=== PATIENT | female | born 1955 | race Caucasian/White ===

== ENCOUNTER → 2016-11-17 | Outpatient (CLI) | payer MEDICAID ==
--- NOTE | 2016-11-21 07:10 | MM ---
Reason for exam: screening (asymptomatic). Last mammogram was performed 1 year and 5 months ago. History: Patient is postmenopausal. Benign left US cyst aspiration of the left breast, August 04, 2009. Benign excisional biopsy of the right breast, January 16, 2000. Stereotactic core biopsy of the right breast, December 21, 1999. Took estrogen for 4 years 7 months. Took progesterone for 4 years 7 months. Physical Findings: A clinical breast exam by your physician is recommended on an annual basis and results should be correlated with mammographic findings. MG 3D Screening Mammo W/Cad Bilateral CC and MLO view(s) were taken. Prior study comparison: June 29, 2015, bilateral MG screening mammo w CAD. June 16, 2014, bilateral MG screening mammo w CAD. March 31, 2013, bilateral digital screening mammo w/CAD. There are scattered fibroglandular densities. No significant changes when compared with prior studies. ASSESSMENT: Negative, BI-RAD 1 RECOMMENDATION: Routine screening mammogram of both breasts in 1 year.
== END | disposition home or self-care (01) ==
LOC: RADMAMWWP 09:46
PROVIDERS: ATTEND Internal Medicine Geriatric Medicine
DX: Z12.31 Encounter for screening mammogram for malignant neoplasm of breast (principal)
CPT/HCPCS: 77063; G0202

== ENCOUNTER 2016-12-06 08:33 | Day surgery (SDC) | payer MEDICAID ==
[2016-12-05 10:00] VITALS: BMI 32.8
[~2016-12-06 08:33] MED LIST: LIDOCAINE 1% 20 ML VIAL (10MG/ML) FOR IV START INTRADERMA PRN
[2016-12-06 09:17] VITALS: RESP 18; TEMP 98.4
[2016-12-06] MEDS: LACTATED RINGERS 1,000 ML IV SCH ×2 (09:31→09:53)
[2016-12-06] MEDS ORDERED: MIDAZOLAM 2 MG/2 ML VIAL IV ONE (09:33)
[2016-12-06] MEDS ORDERED: LIDOCAINE 1% INJ 10MG/ML (20 ML MDV) ONE (09:53)
[2016-12-06] MEDS ORDERED: PROPOFOL 10 MG/ML 20 ML VIAL IV ONE (09:53)
--- NOTE | 2016-12-06 10:11 | P.PCN ---
Date of Procedure: 12/06/16 Preoperative Diagnosis: Postoperative Diagnosis: Procedure(s) Performed: BRIEF HISTORY: Patient is a 61-year-old pleasant 8 female, scheduled for an elective colonoscopy as a part of screening for colorectal neoplasia. Last colonoscopy 5 years ago was normal. She does have family history of colon cancer diagnosed in her mother. PROCEDURE PERFORMED: Colonoscopy. PREOPERATIVE DIAGNOSIS: Screening for colon cancer and family history of colon cancer. IV sedation per Anesthesia. PROCEDURE: After informed consent was obtained, the patient, was brought into the endoscopy unit. IV sedation was administered by Anesthesia under continuous monitoring. Digital rectal examination was normal. Initially the Olympus CF- 160 flexible video colonoscope was then inserted in the rectum, gradually advanced into the cecum without any difficulty. Careful examination was performed as the scope was gradually being withdrawn. Ileocecal valve and the appendiceal orifice were visualized and appeared normal. Prep was excellent. Mucosa of the cecum, ascending colon, transverse colon, descending colon, sigmoid colon, and rectum appeared normal. Retroflexion was performed in the rectum and no lesions were seen. Scattered sigmoid diverticulosis. The patient tolerated the procedure well. IMPRESSION: Normal-appearing colon from rectum to cecum with no evidence of colorectal neoplasia. Scattered sigmoid diverticulosis seen. RECOMMENDATIONS: Findings of this examination were discussed with the patient as well as a family. She was advised to have a repeat screening colonoscopy in 5 years. Implants: Indications for Procedure: Operative Findings: Description of Procedure:
[2016-12-06 10:45] VITALS: BP 148/67; PULSE 67
== END 2016-12-06 10:56 | disposition home or self-care (01) ==
LOC: ORWHC2ENDO 08:33
PROVIDERS: ATTEND Internal Medicine Gastroenterology
DX: Z12.11 Encounter for screening for malignant neoplasm of colon (principal); K57.30 Diverticulosis of large intestine without perforation or abscess without bleeding; Z80.0 Family history of malignant neoplasm of digestive organs; I10 Essential (primary) hypertension; Z79.899 Other long term (current) drug therapy
CPT/HCPCS: J2250; J2001; J2704; G0105

== ENCOUNTER → 2017-02-05 | Outpatient (CLI) | payer BC ==
--- NOTE | 2017-02-05 10:16 | US ---
EXAMINATION TYPE: US duplex aorta DATE OF EXAM: 02/05/2017 COMPARISON: NONE CLINICAL HISTORY: I70.0 ATHEROSCLEROSIS OF AORTA. Pt states possible aortic calcifications seen on X- ray at outside facility EXAM MEASUREMENTS: Abdominal Aorta: Proximal: 2.4 x 2.3 cm Mid: 1.6 x 1.7cm Distal: 1.5 x 1.8 cm Bifurcation: KYUNG: 0.8 x 1.0 cm ADEN: 1.0 x 1.1 cm Abdominal aorta measures up to 2.4 cm in AP diameter proximal segment. Color images are unremarkable. IMPRESSION: No aneurysmal change of the abdominal aorta is evident.
== END | disposition home or self-care (01) ==
LOC: RADUSWWP 09:34
PROVIDERS: ATTEND Internal Medicine Geriatric Medicine
DX: I70.0 Atherosclerosis of aorta (principal)
CPT/HCPCS: 93979

== ENCOUNTER → 2019-04-14 | Outpatient (CLI) | payer MEDICARE ==
--- NOTE | 2019-04-14 08:05 | BD ---
EXAMINATION TYPE: Axial Bone Density DATE OF EXAM: 04/14/2019 COMPARISON: 03.31.2013 CLINICAL HISTORY: 63 YR OLD FEMALE....ICD-10 CODE: N95.1 POST MENOPAUSAL SYMPTOMS Height: 64.4 Weight: 208 FRAX RISK QUESTIONS: Glucocorticoids (More than 3mos): YES (Ex: prednisone, prednisolone, methylprednisolone, dexamethasone, and hydrocortisone). RISK FACTORS HISTORY OF: Active: YES Postmenopausal woman: YES AT AGE 50 YRS OLD Hyperparathyroidism: NO Adrenal Insufficiency: NO MEDICATIONS: Prednisone or other steroids: YES, DOSE PACS ON AND OFF Additional Medications: BP MEDS, CELEXA, Additional History: HYPERTENSION EXAM MEASUREMENTS: Bone mineral densitometry was performed using the [employer] System. Bone mineral density as measured about the Lumbar spine is: ----- L1-L4(G/cm2): 1.307 T Score Values are as follows: ----- L1: 0.1 ----- L2: 0.4 ----- L3: 1.7 ----- L4: 1.7 ----- L1-L4: 1.1 Bone mineral density has: Increased 7.3% since study of: 03.31.2013 Bone mineral density about the R hip (g/cm2): 1.165 Bone mineral density about the L hip (g/cm2): 1.120 T Score values are as follows: -----R Neck: -0.3 -----L Neck: -0.4 -----R Total: 1.2 -----L Total: 0.9 Bone mineral density has: Increased 2.6% since study of: 03.31.2013 FRAX%s: THERE IS A 10.7% CHANCE FOR A MAJOR OSTEOPOROTIC FX AND A 0.5% FOR HIP.....PROBABILITY FOR FX IN 10 YRS TIME IMPRESSION: Normal (Values between +1 and -1 indicate normal bone mass). Consider repeating this study in 5 year s or sooner if there is some new clinical indication. NOTE: T-SCORE=SD OF THE YOUNG ADULT MEAN.
--- NOTE | 2019-04-16 10:54 | MM ---
Reason for exam: screening (asymptomatic). Last mammogram was performed 2 years and 5 months ago. History: Patient is postmenopausal. Benign left US cyst aspiration of the left breast, August 04, 2009. Benign excisional biopsy of the right breast, January 16, 2000. Stereotactic core biopsy of the right breast, December 21, 1999. Took estrogen for 4 years 7 months. Took progesterone for 4 years 7 months. Physical Findings: A clinical breast exam by your physician is recommended on an annual basis and results should be correlated with mammographic findings. MG Screening Mammo w CAD Bilateral CC and MLO view(s) were taken. Prior study comparison: November 17, 2016, bilateral MG 3d screening mammo w/cad. June 29, 2015, bilateral MG screening mammo w CAD. There are scattered fibroglandular densities. Stable faint punctate grouped calcifications left upper outer quadrant. No significant changes when compared with prior studies. ASSESSMENT: Benign, BI-RAD 2 RECOMMENDATION: Routine screening mammogram of both breasts in 1 year.
== END | disposition home or self-care (01) ==
LOC: RADMAMWWP 06:51
PROVIDERS: ATTEND Obstetrics & Gynecology
DX: Z12.31 Encounter for screening mammogram for malignant neoplasm of breast (principal); N95.1 Menopausal and female climacteric states
CPT/HCPCS: 77067; 77080

== ENCOUNTER → 2020-04-21 | Outpatient (CLI) | payer MEDICARE ==
--- NOTE | 2020-04-23 13:34 | MM ---
Reason for exam: screening (asymptomatic). Last mammogram was performed 1 year ago. History: Patient is postmenopausal. Benign left US cyst aspiration of the left breast, August 04, 2009. Benign excisional biopsy of the right breast, January 16, 2000. Stereotactic core biopsy of the right breast, December 21, 1999. Took estrogen for 4 years 7 months. Took progesterone for 4 years 7 months. Physical Findings: A clinical breast exam by your physician is recommended on an annual basis and results should be correlated with mammographic findings. MG 3D Screening Mammo W/Cad Bilateral CC and MLO view(s) were taken. Prior study comparison: April 14, 2019, bilateral MG screening mammo w CAD. November 17, 2016, bilateral MG 3d screening mammo w/cad. The breast tissue is heterogeneously dense. This may lower the sensitivity of mammography. No significant changes when compared with prior studies. ASSESSMENT: Benign, BI-RAD 2 RECOMMENDATION: Routine screening mammogram of both breasts in 1 year.
== END | disposition home or self-care (01) ==
LOC: RADMAMWWP 07:50
PROVIDERS: ATTEND Obstetrics & Gynecology
DX: Z12.31 Encounter for screening mammogram for malignant neoplasm of breast (principal)
CPT/HCPCS: 77063; 77067

== ENCOUNTER → 2021-04-19 | Outpatient (CLI) | payer MEDICARE ==
[2021-04-19 21:52] LABS: T4, Free (Free Thyroxine) 0.89 ng/dL (0.800-1.800)
[2021-04-20 02:32] LABS: African American GFR (CKD) 83.8 (60.0-200.0); Albumin 4.3 g/dL (3.8-4.9); Albumin/Globulin Ratio 1.95 (1.60-3.17); Anion Gap 13.9 mmol/L (4.00-12.00); BUN/Creat Ratio 20.1 Ratio (12.00-20.00); Blood Urea Nitrogen 16.8 mg/dL (9.0-27.0); Calcium 9.7 mg/dL (8.7-10.3); Carbon Dioxide 23.5 mmol/L (21.6-31.8); Globulin 2.2 g/dL (1.6-3.3); Non-African American GFR(CKD) 72.3 (60.0-200.0); Potassium 4.4 mmol/L (3.5-5.5); Total Bilirubin 0.5 mg/dL (0.30-1.20); Total Protein 6.5 g/dL (6.2-8.2)
== END | disposition home or self-care (01) ==
LOC: LABWHC1 07:09
PROVIDERS: ATTEND Internal Medicine Geriatric Medicine
DX: Z00.00 Encounter for general adult medical examination without abnormal findings (principal); R73.9 Hyperglycemia, unspecified; E04.1 Nontoxic single thyroid nodule
CPT/HCPCS: 36415; 80053; 83036; 84439; 84443

== ENCOUNTER → 2021-04-22 | Outpatient (CLI) | payer MEDICARE ==
--- NOTE | 2021-04-25 10:46 | MM ---
Reason for exam: screening (asymptomatic). Last mammogram was performed 1 year ago. History: Patient is postmenopausal. Benign left US cyst aspiration of the left breast, August 04, 2009. Benign excisional biopsy of the right breast, January 16, 2000. Stereotactic core biopsy of the right breast, December 21, 1999. Took estrogen for 4 years 7 months. Took progesterone for 4 years 7 months. MG Screening Mammo w CAD Bilateral CC and MLO view(s) were taken. Prior study comparison: April 21, 2020, bilateral MG 3d screening mammo w/cad. April 14, 2019, bilateral MG screening mammo w CAD. The breast tissue is heterogeneously dense. This may lower the sensitivity of mammography. There is no discrete abnormality. No significant changes when compared with prior studies. ASSESSMENT: Negative, BI-RAD 1 RECOMMENDATION: Routine screening mammogram of both breasts in 1 year.
== END | disposition home or self-care (01) ==
LOC: RADMAMWWP 07:04
PROVIDERS: ATTEND Obstetrics & Gynecology
DX: Z12.31 Encounter for screening mammogram for malignant neoplasm of breast (principal)
CPT/HCPCS: 77067

== ENCOUNTER → 2022-05-18 | Outpatient (CLI) | payer MEDICARE ==
--- NOTE | 2022-05-18 12:59 | BD ---
EXAMINATION TYPE: Axial Bone Density DATE OF EXAM: 05/18/2022 COMPARISON: NONE CLINICAL HISTORY: 66 year old Female. ICD-10 CODE: M810 OSTEOPOROSIS Height: 65.5 Weight: 213.1 FRAX RISK QUESTIONS: Alcohol (3 or more units per day): no Family History (Parent hip fracture): no Glucocorticoids (More than 3mos): no (Ex: prednisone, prednisolone, methylprednisolone, dexamethasone, and hydrocortisone). History of Fracture in Adulthood: no Secondary Osteoporosis: 1. Type 1 Diabetes: no 2. Hyperthyroidism: no 3. Menopause before 45: no 4. Malnutrition: no 5. Chronic liver disease: no Rheumatoid Arthritis: no Current Tobacco Use: no RISK FACTORS HISTORY OF: Surgery to Spine/Hip(right/left)/Wrist (right/left): no Family History of Osteoporosis: no Active: yes Diet low in dairy products/other sources of calcium: yes Postmenopausal woman: yes Lost more than 2 inches in height since high school: no MEDICATIONS: Additional History: EXAM MEASUREMENTS: Bone mineral densitometry was performed using the [employer] System. Bone mineral density as measured about the Lumbar spine is: ----- L1-L4(G/cm2): 1.286 T Score Values are as follows: ----- L1: 0.1 ----- L2: 0.8 ----- L3: 1.0 ----- L4: 1.3 ----- L1-L4: 0.9 Bone mineral density has: decreased -2.1 % since study of: 04.14.2019 Bone mineral density about the R hip (g/cm2): 0.953 Bone mineral density about the L hip (g/cm2): 0.980 T Score values are as follows: -----R Neck: -0.6 -----L Neck: -0.4 -----R Total: 1.1 -----L Total: 0.6 Bone mineral density has: decreased -2.5% since study of: 04.14.2019 FRAX%s: The graph provided illustrates a 7.4% chance for a major osteoporotic fx and a 0.5% chance fo r the hips probability for fx in 10 years time. IMPRESSION: Normal (Values between +1 and -1 indicate normal bone mass). Consider repeating this study in 5 year s or sooner if there is some new clinical indication. NOTE: T-SCORE=SD OF THE YOUNG ADULT MEAN.
--- NOTE | 2022-05-18 16:14 | MM ---
Reason for Exam: Screening (asymptomatic). Last mammogram was performed 1 year(s) and 1 month(s) ago. Patient History: Menarche at age 6. First Full-Term at age 16. Postmenopausal. Estrogen for 4 years, 7 months, until age 54. Progesterone for 4 years, 7 months, until age 54. 08/04/2009, Benign Cyst Aspiration on the left side. 01/16/2000, Benign Excisional Biopsy on the right side. 12/21/1999, Stereotactic Core Biopsy on the Right side. Risk Values: Stella 5 year model risk: 2.0%. NCI Lifetime model risk: 6.6%. Prior Study Comparison: 04/14/2019 Bilateral Screening Mammogram, [facility]. 04/21/2020 Bilateral Screening Mammogram, [facility]. 04/22/2021 Bilateral Screening Mammogram, [facility]. Tissue Density: There are scattered fibroglandular densities. Findings: Analyzed By CAD. There is a group of calcifications in the 9:00 middle position right breast. Additional workup is recommended. These appear to be increasing over the interval. Left breast are stable. Overall Assessment: Incomplete: need additional imaging evaluation, BI-RAD 0 Management: Diagnostic Mammogram of the right breast. A negative mammogram report should not preclude additional follow up of suspicious palpable abnormalities. Patient should continue monthly self breast exam. A clinical breast exam by your physician is recommended on an annual basis and results should be correlated with mammographic findings. Electronically signed and approved by: Amadeo Ely D.O. Radiologis
== END | disposition home or self-care (01) ==
LOC: RADMAMWWP 06:54
PROVIDERS: ATTEND Internal Medicine Geriatric Medicine
DX: Z12.31 Encounter for screening mammogram for malignant neoplasm of breast (principal); Z78.0 Asymptomatic menopausal state
CPT/HCPCS: 77063; 77067; 77080

== ENCOUNTER → 2022-05-23 | Outpatient (CLI) | payer MEDICARE ==
--- NOTE | 2022-05-23 13:55 | MM ---
Reason for Exam: Follow-up at short interval from prior study. Last screening mammogram was performed less than 1 month ago. Patient History: Menarche at age 6. First Full-Term at age 16. Postmenopausal. Estrogen for 4 years, 7 months, until age 54. Progesterone for 4 years, 7 months, until age 54. 08/04/2009, Benign Cyst Aspiration on the left side. 01/16/2000, Benign Excisional Biopsy on the right side. 12/21/1999, Stereotactic Core Biopsy on the Right side. Risk Values: Stella 5 year model risk: 2.0%. NCI Lifetime model risk: 6.6%. Tissue Density: Right: The breast tissue is heterogeneously dense. This may lower the sensitivity of mammography. Findings: Analyzed By CAD. Stable appearing grouped calcifications in the upper outer right breast with punctate morphology when compared to prior examinations. No suspicious mass. Overall Assessment: Probably benign, BI-RAD 3 Management: Diagnostic Mammogram of the right breast in 6 months. A clinical breast exam by your physician is recommended on an annual basis and results should be correlated with mammographic findings. This exam should not preclude additional follow-up of suspicious palpable abnormalities. Results were given to the patient verbally at the time of exam. Electronically signed and approved by: Igor Oropeza D.O.
== END | disposition home or self-care (01) ==
LOC: RADMAMWWP 13:12
PROVIDERS: ATTEND Internal Medicine Geriatric Medicine
DX: R92.8 Other abnormal and inconclusive findings on diagnostic imaging of breast (principal); Z78.0 Asymptomatic menopausal state
CPT/HCPCS: 77065; G0279; 77061

== ENCOUNTER 2022-07-28 12:09 | Day surgery (SDC) | payer MEDICARE ==
[2022-07-25 16:16] VITALS: BMI 33.5
[~2022-07-28 12:09] MED LIST changes: +LACTATED RINGERS 1,000 ML IV SCH; -LIDOCAINE 1% 20 ML VIAL (10MG/ML) FOR IV START INTRADERMA PRN
[2022-07-28 13:38] VITALS: TEMP 98.1
[2022-07-28] MEDS ORDERED: LACTATED RINGERS 1,000 ML IV ONE (13:38)
[2022-07-28] MEDS ORDERED: PROPOFOL 10 MG/ML 20 ML VIAL IV ONE (14:33)
[2022-07-28] MEDS ORDERED: GLYCOPYRROLATE 0.2 MG/ML 2 ML VIAL ONE (14:33)
--- NOTE | 2022-07-28 14:50 | P.PCN ---
Date of Procedure: 07/28/22 Procedure(s) Performed: BRIEF HISTORY: Patient is a 67-year-old pleasant white female scheduled for an elective colonoscopy as a part of the for colon cancer/family history of colon cancer. Her mother was diagnosed with colon cancer at age 79. PROCEDURE PERFORMED: Colonoscopy. PREOPERATIVE DIAGNOSIS: Screening for colon cancer/family history of colon cancer. IV sedation per Anesthesia. PROCEDURE: After informed consent was obtained, the patient, was brought into the endoscopy unit. IV sedation was administered by Anesthesia under continuous monitoring. Digital rectal examination was normal. Initially the Olympus CF-160 flexible video colonoscope was then inserted in the rectum, gradually advanced into the cecum without any difficulty. Careful examination was performed as the scope was gradually being withdrawn. Ileocecal valve and the appendiceal orifice were visualized and appeared normal. Prep was excellent. Mucosa of the cecum, ascending colon, transverse colon, descending colon, sigmoid colon, and rectum appeared normal. Retroflexion was performed in the rectum and no lesions were seen. The patient tolerated the procedure well. IMPRESSION: Normal-appearing colon from rectum to cecum once or colorectal neoplasia. RECOMMENDATIONS: Findings of this examination were discussed with the patient as well as a family. She was advised to have a repeat screening colonoscopy in 5 years because of the family history of colon cancer.
[2022-07-28 15:26] VITALS: BP 142/80; PULSE 80; RESP 20
== END 2022-07-28 15:27 | disposition home or self-care (01) ==
LOC: ORWHC2ENDO 12:09
PROVIDERS: ATTEND Internal Medicine Gastroenterology
DX: Z12.11 Encounter for screening for malignant neoplasm of colon (principal); I10 Essential (primary) hypertension; F17.200 Nicotine dependence, unspecified, uncomplicated; M54.9 Dorsalgia, unspecified; Z79.899 Other long term (current) drug therapy; Z98.51 Tubal ligation status; Z80.0 Family history of malignant neoplasm of digestive organs
CPT/HCPCS: G0105; J2704; 45378

== ENCOUNTER → 2022-11-21 | Outpatient (CLI) | payer MEDICARE ==
--- NOTE | 2022-11-21 08:10 | MM ---
Reason for Exam: Follow-up at short interval from prior study. Last screening mammogram was performed 6 month(s) ago. Patient History: Menarche at age 6. First Full-Term at age 16. Postmenopausal. Estrogen for 4 years, 7 months, until age 54. Progesterone for 4 years, 7 months, until age 54. 08/04/2009, Benign Cyst Aspiration on the left side. 01/16/2000, Benign Excisional Biopsy on the right side. 12/21/1999, Stereotactic Core Biopsy on the Right side. Risk Values: Stella 5 year model risk: 2.0%. NCI Lifetime model risk: 6.3%. Prior Study Comparison: 04/22/2021 Bilateral Screening Mammogram, [facility]. 05/18/2022 Bilateral MG 3D screening mammo w/cad, [facility]. 05/23/2022 Right MG 3D work up w/cad RT, [facility]. Tissue Density: Right: There are scattered fibroglandular densities. Findings: Analyzed By CAD. Microcalcifications lateral, middle depth remain unchanged. Areas of asymmetric density are unchanged as well. No persisting of pneumonia and 3-D images. Overall Assessment: Benign, BI-RAD 2 Management: Screening Mammogram of both breasts in 6 months. . Results were given to the patient verbally at the time of exam. Patient should continue monthly self-breast exams. A clinical breast exam by your physician is recommended on an annual basis. This exam should not preclude additional follow-up of suspicious palpable abnormalities. Note on Stella scores and lifetime risk: 1. A Stella score greater than 3% is considered moderate risk. If this is the case, consider specialist referral to assess eligibility for a risk reducing agent. 2. If overall lifetime risk for the development of breast cancer is 20% or higher, the patient may qualify for future screening with alternating mammogram and breast MRI. Electronically signed and approved by: Maida Wheat M.D. Radiologist
== END | disposition home or self-care (01) ==
LOC: RADMAMWWP 07:22
PROVIDERS: ATTEND Obstetrics & Gynecology
DX: N60.02 Solitary cyst of left breast (principal); R92.1 Mammographic calcification found on diagnostic imaging of breast; R92.2 Inconclusive mammogram; R92.8 Other abnormal and inconclusive findings on diagnostic imaging of breast; Z78.0 Asymptomatic menopausal state
CPT/HCPCS: 77065; G0279; 77061

== ENCOUNTER → 2023-05-25 | Outpatient (CLI) | payer MEDICARE ==
--- NOTE | 2023-05-28 07:59 | MM ---
Reason for Exam: Screening (asymptomatic). Last screening mammogram was performed 12 month(s) ago. Patient History: Menarche at age 6. First Full-Term at age 16. Postmenopausal. Estrogen for 4 years, 7 months, until age 54. Progesterone for 4 years, 7 months, until age 54. 08/04/2009, Benign Cyst Aspiration on the left side. 01/16/2000, Benign Excisional Biopsy on the right side. 12/21/1999, Stereotactic Core Biopsy on the Right side. Risk Values: Stella 5 year model risk: 2.0%. NCI Lifetime model risk: 6.3%. Prior Study Comparison: 05/18/2022 Bilateral MG 3D screening mammo w/cad, [facility]. 05/23/2022 Right MG 3D work up w/cad RT, [facility]. 11/21/2022 Right MG 3D diag mammo w/cad RT, [facility]. Tissue Density: The breast tissue is heterogeneously dense. This may lower the sensitivity of mammography. Findings: Analyzed By CAD. Nodular density right 9:00 position approximately 4 cm from the nipple. Additional views are recommended. No suspicious calcifications are seen within either breast. No left breast mass is seen. Overall Assessment: Incomplete: need additional imaging evaluation, BI-RAD 0 Management: Diagnostic Mammogram of the right breast. . Patient should continue monthly self-breast exams. A clinical breast exam by your physician is recommended on an annual basis. This exam should not preclude additional follow-up of suspicious palpable abnormalities. Note on Stella scores and lifetime risk: 1. A Stella score greater than 3% is considered moderate risk. If this is the case, consider specialist referral to assess eligibility for a risk reducing agent. 2. If overall lifetime risk for the development of breast cancer is 20% or higher, the patient may qualify for future screening with alternating mammogram and breast MRI. Electronically signed and approved by: Federico Bustillo M.D. Radiologis
== END | disposition home or self-care (01) ==
LOC: RADMAMWWP 07:12
PROVIDERS: ATTEND Internal Medicine Geriatric Medicine
DX: Z12.31 Encounter for screening mammogram for malignant neoplasm of breast (principal); Z78.0 Asymptomatic menopausal state
CPT/HCPCS: 77063; 77067

== ENCOUNTER → 2023-06-06 | Outpatient (CLI) | payer MEDICARE ==
--- NOTE | 2023-06-06 10:36 | MM ---
Reason for Exam: Additional evaluation requested from abnormal screening. Last screening mammogram was performed less than 1 month ago. Patient History: Menarche at age 6. First Full-Term at age 16. Postmenopausal. Estrogen for 4 years, 7 months, until age 54. Progesterone for 4 years, 7 months, until age 54. 08/04/2009, Benign Cyst Aspiration on the left side. 01/16/2000, Benign Excisional Biopsy on the right side. 12/21/1999, Stereotactic Core Biopsy on the Right side. Risk Values: Stella 5 year model risk: 2.0%. NCI Lifetime model risk: 6.3%. Prior Study Comparison: 11/17/2016 Bilateral Screening Mammogram, [facility]. 04/14/2019 Bilateral Screening Mammogram, [facility]. 04/21/2020 Bilateral Screening Mammogram, [facility]. 04/22/2021 Bilateral Screening Mammogram, [facility]. 05/18/2022 Bilateral MG 3D screening mammo w/cad, [facility]. 05/23/2022 Right MG 3D work up w/cad RT, [facility]. 11/21/2022 Right MG 3D diag mammo w/cad RT, [facility]. 05/25/2023 Bilateral MG 3D screening mammo w/cad, [facility]. Tissue Density: Right: The breast tissue is heterogeneously dense. This may lower the sensitivity of mammography. Findings: Analyzed By CAD. Nodular densities right breast lateral aspect appear stable dating back to multiple priors back to at least 2019. No new suspicious masses, calcifications or distortions. Overall Assessment: Benign, BI-RAD 2 Management: Screening Mammogram of both breasts in 1 year. Results were given to the patient verbally at the time of exam. Patient should continue monthly self-breast exams. A clinical breast exam by your physician is recommended on an annual basis. This exam should not preclude additional follow-up of suspicious palpable abnormalities. Note on Stella scores and lifetime risk: 1. A Stella score greater than 3% is considered moderate risk. If this is the case, consider specialist referral to assess eligibility for a risk reducing agent. 2. If overall lifetime risk for the development of breast cancer is 20% or higher, the patient may qualify for future screening with alternating mammogram and breast MRI. Electronically signed and approved by: David Mehta DO
== END | disposition home or self-care (01) ==
LOC: RADMAMWWP 09:55
PROVIDERS: ATTEND Internal Medicine Geriatric Medicine
DX: R92.331 Mammographic heterogeneous density, right breast (principal); Z78.0 Asymptomatic menopausal state
CPT/HCPCS: 77065; G0279; 77061

== ENCOUNTER → 2024-06-11 | Outpatient (CLI) | payer MEDICARE ==
--- NOTE | 2024-06-12 18:36 | MM ---
Reason for Exam: Screening (asymptomatic). Last mammogram was performed 1 year(s) and 1 month(s) ago. Patient History: Menarche at age 6. First Full-Term at age 16. Postmenopausal. Estrogen for 4 years, 7 months, until age 54. Progesterone for 4 years, 7 months, until age 54. 08/04/2009, Benign Cyst Aspiration on the left side. 01/16/2000, Benign Excisional Biopsy on the right side. 12/21/1999, Stereotactic Core Biopsy on the Right side. Risk Values: Stella 5 year model risk: 2.1%. NCI Lifetime model risk: 6.0%. Prior Study Comparison: 11/21/2022 Right MG 3D diag mammo w/cad RT, [facility]. 05/25/2023 Bilateral MG 3D screening mammo w/cad, [facility]. 06/06/2023 Right MG 3D work up w/cad RT, [facility]. Tissue Density: The breasts are heterogeneously dense, which may obscure small masses. Findings: Analyzed By CAD. There is no suspicious group of microcalcifications or new suspicious mass in either breast. Overall Assessment: Negative, BI-RAD 1 Management: Screening Mammogram of both breasts in 1 year. . Patient should continue monthly self-breast exams. A clinical breast exam by your physician is recommended on an annual basis. This exam should not preclude additional follow-up of suspicious palpable abnormalities. Note on Stella scores and lifetime risk: 1. A Stella score greater than 3% is considered moderate risk. If this is the case, consider specialist referral to assess eligibility for a risk reducing agent. 2. If overall lifetime risk for the development of breast cancer is 20% or higher, the patient may qualify for future screening with alternating mammogram and breast MRI. [facility], , 06/12/2024 6:34 PM. Electronically signed and approved by: Maida Wheat M.D. Radiologist
== END | disposition home or self-care (01) ==
LOC: RADMAMWWP 06:58
PROVIDERS: ATTEND Internal Medicine Geriatric Medicine
DX: Z12.31 Encounter for screening mammogram for malignant neoplasm of breast (principal); R92.333 Mammographic heterogeneous density, bilateral breasts; Z78.0 Asymptomatic menopausal state
CPT/HCPCS: 77063; 77067